=== PATIENT | male | born 1950 | race African-American/Black ===

== ENCOUNTER 2016-10-09 10:29 | Emergency (ER) | payer SELFPAY ==
[~2016-10-09] VITALS: Ht 170.2 cm; Wt 90.7 kg
[2016-10-09 12:58] VITALS: BP 198/103
== END 2016-10-09 12:58 | disposition home or self-care (01) ==
LOC: ED 10:29
DX: I10 Essential (primary) hypertension (principal); R51 Headache; E78.5 Hyperlipidemia, unspecified

== ENCOUNTER 2020-02-03 12:33 | Emergency (ER) | payer OTHER ==
[~2020-02-03] VITALS: Ht 170.2 cm; Wt 88.0 kg
[2020-02-03 12:39] VITALS: Ht 170.2 cm; Wt 88.0 kg
[2020-02-03 13:59] LABS: BASOPHIL % 0.3 % (0-2); PLATELET COUNT 210 x10^3mcL (130-400); RED CELL DISTRIBUTION WIDTH 13.4 % (11.5-14.5)
[2020-02-03 14:03] LABS: CALCIUM 9.1 mg/dL (8.5-10.1); CARBON DIOXIDE 27.4 mmol/L (21-32); CREATININE SERUM 1.3 mg/dL (0.7-1.3); POTASSIUM SERUM 4.3 mmol/L (3.5-5.1)
[2020-02-03 14:08] LABS: ALBUMIN 3.5 g/dL (3.4-5.0); BILIRUBIN TOTAL 0.4 mg/dL (0.20-1.00); TOTAL PROTEIN, SERUM 7.5 g/dL (6.4-8.2)
[2020-02-03 19:27] VITALS: BP 164/78
== END 2020-02-03 19:25 | disposition short-term general hospital (02) ==
LOC: ED 12:33
PROVIDERS: Emergency Medicine
DX: I60.9 Nontraumatic subarachnoid hemorrhage, unspecified (principal); I62.9 Nontraumatic intracranial hemorrhage, unspecified; R55 Syncope and collapse; I10 Essential (primary) hypertension
CPT/HCPCS: 83880; Q0092